=== PATIENT | female | born 1935 | race Caucasian/White ===

== ENCOUNTER 2020-01-16 14:05 | Inpatient (IN) ==
[2020-01-16] MEDS ORDERED: ASPIRIN CHEW 324 MG PO STA (15:23)
--- NOTE | 2020-01-16 15:40 | XRay Report ---
SINGLE VIEW CHEST CLINICAL HISTORY: Atypical chest pain. FINDINGS: An AP, portable, upright chest radiograph is compared to chest x-ray and chest CT dated 12/01. The examination is degraded by portable technique, apical lordotic positioning, and patient r otation. The heart is mildly enlarged noting atherosclerotic calcification of the thoracic aorta. The pulmonary vasculature is noncongested. Chronic interstitial thickening is similar to previous. Mild atelectasis is noted at the lung bases. No airspace consolidation or large pleural effusion is identi fied. No pneumothorax is seen. The skeletal structures are osteopenic. The bony thorax is grossly int act. Degenerative change is noted in the shoulders and thoracic spine. IMPRESSION: Mild cardiac enlargement with no acute cardiopulmonary abnormality. ACT 112: Negative or not required by law. Electronically signed by: Tony Ross M.D. 01/16/2020 3:39 PM
[2020-01-16 16:03] LABS: Basophils # (auto) 0.04 K/uL (0-0.2); Basophils % (auto) 0.5 %; Eosinophils # (auto) 0.12 K/uL (0-0.5); Eosinophils % (auto) 1.4 %; Hematocrit (blood only) 45.3 % (37-47); Hemoglobin 14.9 g/dL (12.0-16.0); Immature Granulocytes # (auto) 0.02 K/uL (0.00-0.02); Immature Granulocytes % (auto) 0.2 %; Lymphocytes # (auto) 1.18 K/uL (1.2-3.4); Lymphocytes % (auto) 13.7 %; Mean Corpuscular Hgb Conc 32.9 g/dL (32-36); Mean Corpuscular Volume 91.1 fL (80-100); Mean Platelet Volume 9.8 fL (7.4-10.4); Monocytes # (auto) 0.72 K/uL (0.11-0.59); Monocytes % (auto) 8.4 %; Neutrophils # (auto) 6.52 K/uL (1.4-6.5); Neutrophils % (auto) 75.8 %; Platelet Count 248 K/uL (130-400); RDW Coefficient of Variation 13.7 % (11.5-14.5); RDW Standard Deviation 45.7 fL (36.4-46.3); Red Blood Count 4.97 M/uL (4.2-5.4)
[2020-01-16 16:25] LABS: BUN Creatinine Ratio 15.3 (10-20); Blood Urea Nitrogen 19 mg/dl (7-18); Calcium 9.4 mg/dl (8.5-10.1); Carbon Dioxide 24 mmol/L (21-32); Chloride 108 mmol/L (98-107); Creatinine Clr Calc Pharmacy 37.1 ml/min; Est GFR (African American) 45.1; Est GFR (Non-African American) 38.9; Glucose 105 mg/dl (70-99); Lipase 165 U/L (73-393); Potassium 3.9 mmol/L (3.5-5.1); Sodium 140 mmol/L (136-145)
[2020-01-16 16:30] LABS: Troponin I < 0.015 ng/ml (0-0.045)
[2020-01-16 16:38] LABS: Partial Thromboplastin Ratio 0.9; Partial Thromboplastin Time 23.9 Seconds (21.0-31.0); Prothrombin Time 10.3 Seconds (9.0-12.0)
[2020-01-16 16:42] LABS: D Dimer 7720 ug/L FEU (0-500)
--- NOTE | 2020-01-16 16:59 | Ultrasound Report ---
US venous doppler LE RT CLINICAL HISTORY: 84 years-old Female presenting with right lower extremity pain and swelling. TECHNIQUE: Real-time grayscale and color and spectral Doppler ultrasound imaging of the veins of the right lower extremity was performed. Compression and augmentation were also utilized. COMPARISON: 09/17/2018. FINDINGS: RIGHT: Common femoral vein: Nonocclusive filling defect consistent with thrombus. Greater saphenous vein (superficial): Patent. Deep femoral vein: Patent. Femoral vein: Occlusive filling defect consistent with thrombus throughout the length of the superfic ial femoral vein. Popliteal vein: Nonocclusive thrombus. Calf veins: Occlusive thrombus. Other: None. IMPRESSION: Extensive occlusive deep venous thrombosis extending from the calf veins proximally to the femoral ve in with nonocclusive thrombus in the common femoral vein. This is presumably acute. The report will be called/faxed according to standard departmental protocol for a critical finding. ACT 112: Negative or not required by law. Electronically signed by: Tanmay Dunham M.D. 01/16/2020 4:58 PM
[2020-01-16] MEDS ORDERED: OPTIRAY 320 125ml IV PRN (17:27)
--- NOTE | 2020-01-16 17:43 | CT Scan Report ---
CT angio chest PE protocol CLINICAL HISTORY: 84 years-old Female presenting with elevated d-dimer, atypical chest pain, history of recent pulmonary emboli, clinical concern for pulmonary embolus. TECHNIQUE: Multidetector CT angiography of the chest was performed after administration of intravenou s contrast. 3-D volumetric and/or maximum intensity projection (MIP) images were subsequently reconst ructed for review. IV contrast: 79 mL of Optiray 320. One or more dose lowering techniques were used consistent with the principles of ALARA (as low as reasonably achievable), including automatic exposu re control, mA or kV adjustment to individual patient size, and/or use of iterative reconstruction. COMPARISON: Chest x-ray from earlier today and CTA chest from 12/28/2018. CT DOSE (mGy.cm): The estimated cumulative dose is 358.23 mGy.cm. FINDINGS: Tube Room Cashier topogram: Unremarkable. Pulmonary vasculature: The study is adequate for assessment of the pulmonary vascular tree. Acute appearing bilateral pulmon tere emboli within the distal main pulmonary arteries and extensively lobar and segmental pulmonary ar teries most extensively effect in the lower lobes. There is more eccentric emboli in the distal right main pulmonary artery and right upper lobe. The prior saddle embolus has resolved. Overall, the embo haleigh burden is slightly decreased from prior. Main pulmonary artery enlarged measuring 3.4 cm in maxim al diameter. No flattening of the interventricular septum. No intracardiac filling defect. No reflux of contrast into the hepatic veins. Remaining chest: Soft tissues: Thyroid absent or atrophic. No axillary, supraclavicular, mediastinal, or hilar lymphad enopathy. Atherosclerosis of the aorta. Top normal heart size. Coronary artery calcification. No ting cardial or pleural effusion. Cholelithiasis. Small hiatal hernia. Lungs and airways: No pneumothorax. Central airways patent. Pulmonary arteries are not significantly enlarged relative to adjacent bronchi. No interlobular septal thickening. Minimal dependent changes l ikely atelectasis. Minimal peripheral consolidation noted in the lingula, new from prior. Notably, th is region does not appear to be severely affected by pulmonary emboli. Musculoskeletal: Degenerative changes of the spine. IMPRESSION: 1. Extensive bilateral largely acute appearing pulmonary emboli with a slightly decreased embolus bu rden in comparison to prior and notable resolution of prior saddle embolus. Given the short interval time course, these emboli may all be subacute. Eccentricity of the distal right main pulmonary artery suggests early evolution towards chronic thromboembolic changes. 2. Main pulmonary artery enlargement suggests pulmonary hypertension. 3. No convincing evidence of pulmonary infarct or right heart strain. The report will be called/faxed according to standard departmental protocol. ACT 112: Negative or not required by law. Electronically signed by: Tanmay Dunham M.D. 01/16/2020 5:42 PM
[2020-01-16] MEDS ORDERED: HEPARIN SOD (PORCINE) 1000 UNIT/ML 10 ML VIAL ONE (18:40)
[2020-01-16] MEDS: HEPARIN SODIUM/DEXTROSE 25,000 UNITS/500 ML BAG IV SCH (18:45)
[2020-01-16] MEDS ORDERED: ACETAMINOPHEN 325 MG TAB PO PRN (20:36)
[2020-01-16] MEDS ORDERED: PNEUMOCOCCAL POLYSACCHARIDES 25 MCG/0.5 ML VIAL/SYR IM ONE (20:41)
[2020-01-16] MEDS ORDERED: PNEUMOCOCCAL ADMINISTRATION CHARGE ONE (20:41)
[2020-01-16] MEDS ORDERED: INFLUENZA ADMINISTRATION CHARGE ONE (20:41)
[2020-01-16] MEDS ORDERED: INFLUENZA VACCINE HIGH DOSE 65+ 0.5 ML SYR IM ONE (20:41)
--- NOTE | 2020-01-16 20:53 | Emergency Department Note ---
Entered by Ángel Chicas acting as a scribe for Demetrio Darby History of Present Illness General Chief complaint: Leg Injury/Pain Stated complaint: swollen R FOOT ANKLE CALF KNEE RED PAINFUL Time Seen by Provider: 01/16/20 15:18 Source: patient and family (daughter) History of Present Illness Onset (ago): day(s) (yesterday) Location: lower extremity (right) Pain Consistency: + other (worsening ) Quality: + other (swelling) Associated symptoms: + other (Positive for SOB. Negative for dyspnea and CP.) The patient is an 84 year old female who presents to the emergency department with complaints of worsening right leg swelling beginning yesterday. The patient states that her right leg started swelling yesterday, but she notes that her right leg swelling has worsened today. Per daughter, the patient had an episode of SOB three days ago while she was walking around. The patient denies any dyspnea and CP. 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 History is limited due to patient's dementia. Home Medications Home Medications Medication Instructions Recorded Confirmed Type levothyroxine 88 mcg PO QAM 11/12/18 01/16/20 History multivitamin [Daily-Krystyna] 1 tab PO QAM #100 tab 11/15/18 01/16/20 Rx cholecalciferol (vitamin D3) 5,000 unit PO DAILY 12/28/18 01/16/20 History [Vitamin D3] cyanocobalamin (vitamin B-12) 1,000 mcg PO DAILY 12/28/18 01/16/20 History [Vitamin B-12] rivastigmine tartrate 1.5 mg PO DAILY 12/28/18 01/16/20 History memantine 5 mg PO DAILY 01/16/20 01/16/20 History sertraline 25 mg PO DAILY 01/16/20 01/16/20 History Allergies Allergy/AdvReac Type Severity Reaction Status Date / Time No Known Allergies Allergy Verified 01/16/20 18:06 Past Med/Surg History Social History Preferred Language: Yoruba Communication Ability: Effective Visual Impairment: Limited Hearing Ability: Normal Transmitter Operator Required: No Beliefs That Will Affect Care: None marital status: / Current Living Situation: Spouse Current Living Situation Comment: cara herrera Other Information That Helps Us Care for You: No Feels Safe at Home: Yes Safety Concerns: Feels Safe At This Time Smoking Status: Never smoker Do You Dip or Chew Tobacco: No ; Second Hand Ex posure: No ; Tobacco Cessation Education Requested by Patient: No Hx Alcohol Use: No Hx Substance Use: No Review of Systems Unobtainable due to cognitive status Physical Exam Vital Signs Vital Signs - 24 hr 01/16/20 14:13 01/16/20 15:44 01/16/20 15:53 Temperature 36.6 C Temperature Source Oral Pulse Rate 128 H 96 H 94 H Pulse Rate from SpO2 Sensor 94 H Pulse Rhythm Regular Respiratory Rate 20 20 17 Respiratory Effort / Characteristics Non-Labored Spontaneous Respiratory Depth Normal Respiratory Pattern Regular Blood Pressure 156/106 H 159/95 H Blood Pressure Mean 122 111 Blood Pressure Position Sitting Pulse Oximetry 96 96 97 Oxygen Delivery Method Room Air Room Air Room Air Sepsis Recent Fever Within 48 Hours No Sepsis New/Unexplained Change in Mental Status No Sepsis Action Taken by Nursing No Action Required 01/16/20 16:00 01/16/20 17:01 Temperature Temperature Source Pulse Rate 92 H 89 Pulse Rate from SpO2 Sensor 93 H 90 Pulse Rhythm Respiratory Rate 20 21 Respiratory Effort / Characteristics Respiratory Depth Respiratory Pattern Blood Pressure 140/101 H 140/101 H Blood Pressure Mean 107 111 Blood Pressure Position Pulse Oximetry 97 100 Oxygen Delivery Method Room Air Sepsis Recent Fever Within 48 Hours Sepsis New/Unexplained Change in Mental Status Sepsis Action Taken by Nursing HENT: Exam performed. Head: Normocephalic and atraumatic. Right Ear: External ear normal. No mastoid tenderness. Left Ear: External ear normal. No mastoid tenderness. Mouth/Throat: The oropharynx is clear and moist. No trismus in the jaw. No dental abscesses or uvula swelling. No oropharyngeal exudate or tonsillar abscesses. EYES: Conjunctivae and EOM are normal. Pupils are equal, round, and reactive to light. Right eye exhibits no discharge. Left eye exhibits no discharge. No scleral icterus. NECK: Normal range of motion. Neck supple. No JVD present. No spinous process te nderness present. No carotid bruit present. No rigidity. No tracheal deviation and normal range of motion present. No Brudzinski's sign and no Kernig's sign noted. CV: Tachycardic, regular rhythm, normal heart sounds and intact distal pulses. Palpable radial pulses bue. PULM/CHEST: Effort normal and breath sounds normal. No respiratory distress. No stridor. She has no wheezes. She has no rales. Chest Wall: She exhibits no tenderness. ABD: The abdomen is soft. Bowel sounds are normal. She has no distension. No mass is present. There is no tenderness. There is no rebound, no guarding, no Duran's sign and no tenderness at McBurney's point. Rovsig negative MUSC/SKEL: Normal range of motion. There is no tenderness or deformity. Swelling of the right lower extremity noted. LYMPH: No cervical adenopathy. NEURO: Motor and sensation grossly intact. SKIN: Skin is warm and dry. She is not diaphoretic. Course Course 1520: The patient was evaluated in room B7. A complete history and physical exam was performed. 1649: The patient has a D dimer of 7000. I ordered a CTA chest. 1849: Vital signs stable. CTA shows bilateral PEs and ultrasound shows DVT. Patient be started on heparin and admitted to hospital service given the recurrence of PEs and DVTs. Upon reevaluation, the patient is stable. I discus sed the findings and the treatment plan with the patient. She expresses agreement and understanding. I spoke with Aparna WALTON, [facility]. The patient will be evaluated for further management. Consultations Consultation #1: I reviewed the patient's case with Aparna WALTON, [facility]. She will evaluate the patient for further management. Time: 18:49 Administered Medications Heparin Sodium/Dextrose (Heparin Sodium/Dextrose) 25,000 units in 500 mls @ 26 mls/hr IV .[id number] [facility]; Protocol Stop: 02/15/20 18:14 Last Admin: 01/16/20 18:45 Dose: 1,300 units/hr, 26 mls/hr Documented by: [id number] Cosigned by: [id number] Discontinued Medications Aspirin (Aspirin) 324 mg PO NOW STA Stop: 01/16/20 15:24 Last Admin: 01/16/20 15:50 Dose: 324 mg Documented by: [id number] Heparin Sodium (Porcine) (Heparin Iv Bolus) Confirm Administered Dose 10,000 units .ROUTE .[facility] Stop: 01/16/20 18:41 Last Admin: 01/16/20 18:45 Dose: 6,000 units Documented by: [id number] Cosigned by: [id number] Heparin Sodium/Dextrose () 1 ea IV NOW STA; Protocol Stop: 01/16/20 18:02 Last Admin: 01/16/20 20:38 Dose: Not Given Documented by: [id number] Ioversol (Optiray 320 125ml) 79 ml IV ONCE PRN PRN Reason: Interaction Checking Stop: 01/20/20 17:26 Last Admin: 01/16/20 17:30 Dose: 79 ml Documented by: [id number] Critical Care Time Critical Care Time: Yes Total Critical Care Time: 86 I have personally spent 86 minutes of critical care time in the direct management of this patient. This includes bedside care, interpretation of d iagnostic studies, and testing, discussion with consultants, patient, and family members, and other required patient management activities. This 86 minutes is in excess of all separately billable procedures. Medical Decision Making Medical Records Attestation: I reviewed the patient's medical records. Home Medications Current Medication List: was personally reviewed by me Laboratory Data Attestation: I reviewed the patient's lab results. Result diagrams: 01/16/20 15:50 01/16/20 15:50 Lab Results 01/16/20 01/16/20 01/16/20 Range/Units 15:50 15:50 15:50 WBC 8.60 (4.8-10.8) K/uL RBC 4.97 (4.2-5.4) M/uL Hgb 14.9 (12.0-16.0) g/dL Hct 45.3 (37-47) % MCV 91.1 (80-100) fL MCH 30.0 (25-34) pg MCHC 32.9 (32-36) g/dL RDW Std Deviation 45.7 (36.4-46.3) fL RDW Coeff of Jennyfer 13.7 (11.5-14.5) % Plt Count 248 (130-400) K/uL MPV 9.8 (7.4-10.4) fL Immature Gran % (Auto) 0.2 % Neut % (Auto) 75.8 % Lymph % (Auto) 13.7 % [place] % (Auto) 8.4 % Eos % (Auto) 1.4 % Baso % (Auto) 0.5 % Immature Gran # (Auto) 0.02 (0.00-0.02) K/uL Neut # (Auto) 6.52 H (1.4-6.5) K/uL Lymph # (Auto) 1.18 L (1.2-3.4) K/uL [place] # (Auto) 0.72 H (0.11-0.59) K/uL Eos # (Auto) 0.12 (0-0.5) K/uL Baso # (Auto) 0.04 (0-0.2) K/uL PT 10.3 (9.0-12.0) Seconds INR 1.0 (0.9-1.1) APTT 23.9 (21.0-31.0) Seconds PTT Ratio 0.9 D-Dimer 7720 H* (0-500) ug/L FEU Sodium 140 (136-145) mmol/L Potassium 3.9 (3.5-5.1) mmol/L Chloride 108 H (98-107) mmol/L Carbon Dioxide 24 (21-32) mmol/L Anion Gap 8.0 (3-11) BUN 19 H (7-18) mg/dl Creatinine 1.25 H (0.6-1.2) mg/dl Est Cr Clr Drug Dosing 37.1 ml/min Est GFR ( Amer) 45.1 Est GFR (Non-Af Amer) 38.9 BUN/Creatinine Ratio 15.3 (10-20) Glucose 105 H (70-99) mg/dl Calcium 9.4 (8.5-10.1) mg/dl Troponin I < 0.015 (0-0.045) ng/ml Lipase 165 (73-393) U/L Imaging Data Radiologist's Impression: Radiology results as stated below per my review and the radiologist's interpretation: US venous doppler LE RT FINDINGS: RIGHT: Common femoral vein: Nonocclusive filling defect consistent with thrombus. Greater saphenous vein (superficial): Patent. Deep femoral vein: Patent. Femoral vein: Occlusive filling defect consistent with thrombus throughout the length of the superficial femoral vein. Popliteal vein: Nonocclusive thrombus. Calf veins: Occlusive thrombus. Other: None. IMPRESSION: Extensive occlusive deep venous thrombosis extending from the calf veins proximally to the femoral vein with nonocclusive thrombus in the common femoral vein. This is presumably acute. The report will be called/faxed according to standard departmental protocol for a critical finding. ACT 112: Negative or not required by law. Electronically signed by: Tanmay Dunham M.D. 01/16/2020 4:58 PM SINGLE VIEW CHEST FINDINGS: An AP, portable, upright chest radiograph is compared to chest x-ray and chest CT dated 12/28/2018. The examination is degraded by portable technique, apical lordotic positioning, and patient rotation. The heart is mildly enlarged noting atherosclerotic calcification of the thoracic aorta. The pulmonary vasculature is noncongested. Chronic interstitial thickening is similar to previous. Mild atelectasis is noted at the lung bases. No airspace consolidation or large pleural effusion is identified. No pneumothorax is seen. The skeletal structures are osteopenic. The bony thorax is grossly intact. Degenerative change is noted in the shoulders and thoracic spine. IMPRESSION: Mild cardiac enlargement with no acute cardiopulmonary abnormality. ACT 112: Negative or not required by law. Electronically signed by: Tony Ross M.D. 01/16/2020 3:[address] angio chest PE protocol FINDINGS: Recycling Worker topogram: Unremarkable. Pulmonary vasculature: The study is adequate for assessment of the pulmonary vascular tree. Acute appearing bilateral pulmonary emboli within the distal main pulmonary arteries and extensively lobar and segmental pulmonary arteries most extensively effect in the lower lobes. There is more eccentric emboli in the distal right main pulmonary artery and right upper lobe. The prior saddle embolus has resolved. Overall, the embolus burden is slightly decreased from prior. Main pulmonary artery enlarged measuring 3.4 cm in maximal diameter. No flattening of the in terventricular septum. No intracardiac filling defect. No reflux of contrast into the hepatic veins. Remaining chest: Soft tissues: Thyroid absent or atrophic. No axillary, supraclavicular, mediasti nal, or hilar lymphadenopathy. Atherosclerosis of the aorta. Top normal heart size. Coronary artery calcification. No pericardial or pleural effusion. Cholelithiasis. Small hiatal hernia. Lungs and airways: No pneumothorax. Central airways patent. Pulmonary arteries are not significantly enlarged relative to adjacent bronchi. No interlobular septal thickening. Minimal dependent changes likely atelectasis. Minimal peripheral consolidation noted in the lingula, new from prior. Notably, this region does not appear to be severely affected by pulmonary emboli. Musculoskeletal: Degenerative changes of the spine. IMPRESSION: 1. Extensive bilateral largely acute appearing pulmonary emboli with a slightly decreased embolus burden in comparison to prior and notable resolution of prior saddle embolus. Given the short interval time course, these emboli may all be subacute. Eccentricity of the distal right main pulmonary artery suggests early evolution towards chronic thromboembolic changes. 2. Main pulmonary artery enlargement suggests pulmonary hypertension. 3. No convincing evidence of pulmonary infarct or right heart strain. The report will be called/faxed according to standard departmental protocol. ACT 112: Negative or not required by law. Electronically signed by: Tanmay Dunham M.D. 01/16/2020 5:42 PM ECG Data Attestation: I personally reviewed and interpreted this ECG as follows: Indication: + SOB/dyspnea Rate (beats per minute): 96 Rhythm: + sinus rhythm ECG ST segments: no ST depression and no ST elevation Additional Comments: SD/QRS/QTC within normal limits, left ventricular hypertrophy noted. Blood Pressure Blood Pressure Findings: Elevated blood pressure Blood Pressure Disposition: further management by hospitalist [facility] Narrative 1520: The patient was evaluated in room B7. A complete history and physical exam was performed. 1649: The patient has a D dimer of 7000. I ordered a CTA chest. 1849: Vital signs stable. CTA shows bilateral PEs and ultrasound shows DVT. Patient be started on heparin and admitted to hospital service given the recurrence of PEs and DVTs. Upon reevaluation, the patient is stable. I discussed the findings and the treatment plan with the patient. She expresses agreement and understanding. [facility] The patient will be evaluated for further management. Impression & Plan Bilateral pulmonary embolism, DVT (deep venous thrombosis) Discharge Plan Visit Data *Final* Discharge Date/Time: 01/16/20 19:35 Chief Complaint: Leg Injury/Pain Stated Complaint: swollen R FOOT ANKLE CALF KNEE RED PAINFUL ED Provider: Demetrio Darby Discharge Problem: Bilateral pulmonary embolism, DVT (deep venous thrombosis) Patient Disposition: Admitted As Inpatient Discharge Instructions Interventions: ED Discharge Assessment Last Done: 01/16/20 19:35 Discharge Problem: DVT (deep venous thrombosis) Qualifiers: DVT location: lower extremity Affected thrombotic vein of extremity: unspecified vein of extremity Chronicity: acute Laterality: right Qualified Code(s): I82.401 - Acute embolism and thrombosis of unspecified deep veins of right lower extremity The scribe's documentation has been prepared under my direction and personally reviewed by me in its entirety. I confirm that the note above accurately ref lects all work, treatment, procedures, and medical decision making performed by me.
--- NOTE | 2020-01-16 21:37 | History & Physical Report ---
Date of Service January 16, 2020 Assessment & Plan (1) Bilateral pulmonary embolism: (2) DVT (deep venous thrombosis): -Admit to telemetry -Patient presenting from home for evaluation of right lower extremity edema; 11/2018, had L LE DVT and saddle pulmonary embolism, treated at [facility] with IV heparin and transition to Eliquis. Thromboembolism was felt to be provoked secondary to recent hip surgery. Patient's PCP discontinued Eliquis about 2 months ago due to completion of therapy. Patient tolerated Eliquis well per her daughter. -In the ED, found to have extensive occlusive deep venous thrombosis extending from the calf veins proximally to the femoral vein with nonocclusive thrombus in the common femoral vein; CTA chest showing extensive bilateral largely acute appearing pulmonary emboli without signs of saddle embolus -Troponin negative, hemodynamically stable, saturating well on room air -Started on IV heparin in the ED, will continue with; likely transition to Eliquis -Possibly provoked thromboembolism as patient is rather sedentary; Ensure routine cancer screenings are up-to-date (3) Hypothyroid: -Continue levothyroxine (4) Dementia: -Continue Namenda and Exelon (5) DVT prophylaxis: -On IV heparin as above History of Present Illness Chief Complaint: Right leg swelling Primary Care Provider: Nav Camilo 84-year-old female who presents the ED for evaluation of right leg swelling. Patient with history of left lower extremity DVT and saddle pulmonary embolism 11/2018. Patient treated at [facility] with IV heparin and transition to Eliquis. Was felt to be provoked DVT at that time due to recent hip surgery. Per patient's daughter who is the bedside, patient's PCP discontinued her Eliquis about 2 months ago. Patient has underlying dementia therefore history is limited from her. Daughter reports that the right leg swelling was first noted yesterday. Today patient's home health nurse came to evaluate her and saw the significance of the swelling and patient was then referred to the ED for further evaluation. At the time my exam, patient offers no complaints. She denies chest pain shortness of breath. No lightheadedness, dizziness, diaphoresis, syncopal events. No other recent illnesses, fevers, chills. Denies any urinary symptoms. In the ED, right lower extremity venous Doppler is positive for DVT and CTA chest is showing largely acute bilateral pulmonary embolism. Patient is hemodynamically stable and saturating well on room air. She was started on a heparin drip. Allergies Allergy/AdvReac Type Severity Reaction Status Date / Time No Known Allergies Allergy Verified 01/16/20 18:06 Home Medications Home Medications Medication Instructions Recorded Confirmed Type levothyroxine 88 mcg PO QAM 11/12/18 01/16/20 History multivitamin [Daily-Krystyna] 1 tab PO QAM #100 tab 11/15/18 01/16/20 Rx cholecalciferol (vitamin D3) 5,000 unit PO DAILY 12/28/18 01/16/20 History [Vitamin D3] cyanocobalamin (vitamin B-12) 1,000 mcg PO DAILY 12/28/18 01/16/20 History [Vitamin B-12] rivastigmine tartrate 1.5 mg PO DAILY 12/28/18 01/16/20 History memantine 5 mg PO DAILY 01/16/20 01/16/20 History sertraline 25 mg PO DAILY 01/16/20 01/16/20 History Past Med/Surg History Medical History Dementia Hip fracture, right (Acute) S/p repair History of DVT (deep vein thrombosis) History of pulmonary embolism HTN (hypertension) (Chronic) Hyperlipidemia (Chronic) Hypothyroid Surgical History Hx of cataract surgery Hx of tonsillectomy Family History (Updated 01/16/20 @ 21:34 by ANTON Kendall) Sister Breast cancer Social History Preferred Language: Emir[place] Communication Ability: Effective Visual Impairment: Limited Hearing Ability: Normal Housing Management Officer Required: No Beliefs That Will Affect Care: None marital status: / Current Living Situation: Spouse Current Living Situation Comment: [facility] Other Information That Helps Us Care for You: No Feels Safe at Home: Yes Safety Concerns: Feels Safe At This Time Smoking Status: Never smoker Do You Dip or Chew Tobacco: No ; Second Hand Exposure: No ; Tobacco Cessation Education Requested by Patient: No Hx Alcohol Use: No Hx Substance Use: No Review of Systems Review of Systems: Reviewed with patient however felt to be unreliable due to underlying dementia. Physical Exam Constitutional: WD/WN, vitals as above Eyes: PERRL, conjunctivae normal, anicteric sclerae ENMT: external ear and nose normal, oropharynx normal Respiratory: normal respiratory effort, lungs clear to auscultation Cardiovascular: Rate/Rhythm: regular rate and regular rhythm Vessels: normal peripheral pulses Extremities: + edema (+3 edema RLE) Gastrointestinal (Abdomen): normal bowel sounds, soft, nontender, no hepatosplenomegaly Musculoskeletal: no cyanosis or clubbing, extremities motor strength 5/5 Skin: no rashes, warm and dry Neurologic: PERRL, EOMI, accommodation nl, no face palsy, no dysarthria Psychiatric: Orientation: alert, oriented to person and oriented to place (Aware that she is in the hospital however unsure of which one); + not oriented to time Insight: + limited insight Results & Data Vital Signs (Past 12 Hours) Vital Signs Temp Pulse Pulse Resp BP BP Pulse Ox 01/16/20 20:25 36.5 C 77 18 144/86 H 01/16/20 19:35 77 15 144/96 H 97 01/16/20 19:00 80 15 144/96 H 96 01/16/20 17:01 89 21 140/101 H 100 01/16/20 16:00 92 H 20 140/101 H 97 01/16/20 15:53 94 H 17 159/95 H 97 01/16/20 15:44 96 H 20 96 01/16/20 14:13 36.6 C 128 H 20 156/106 H 96 Laboratory Results Short CBC 01/16/20 Range/Units 15:50 WBC 8.60 (4.8-10.8) K/uL Hgb 14.9 (12.0-16.0) g/dL Hct 45.3 (37-47) % Plt Count 248 (130-400) K/uL BMP 01/16/20 15:50 Sodium 140 Potassium 3.9 Chloride 108 H Carbon Dioxide 24 BUN 19 H Creatinine 1.25 H Glucose 105 H Calcium 9.4 Cardiac Enzymes 01/16/20 Range/Units 15:50 Troponin I < 0.015 (0-0.045) ng/ml Diagnostic Findings RLE VENOUS DOPPLER IMPRESSION: Extensive occlusive deep venous thrombosis extending from the calf veins proximally to the femoral vein with nonocclusive thrombus in the common femoral vein. This is presumably acute. CXR IMPRESSION: Mild cardiac enlargement with no acute cardiopulmonary abnormality. CTA CHEST IMPRESSION: 1. Extensive bilateral largely acute appearing pulmonary emboli with a slightly decreased embolus burden in comparison to prior and notable resolution of prior saddle embolus. Given the short interval time course, these emboli may all be subacute. Eccentricity of the distal right main pulmonary artery suggests early evolution towards chronic thromboembolic changes. 2. Main pulmonary artery enlargement suggests pulmonary hypertension. 3. No convincing evidence of pulmonary infarct or right heart strain. Code Status & VTE Plan Code Status Patient is a full code as per my discussion with her and her daughter who is the bedside. VTE Prophylaxis Plan VTE Prophylaxis will be ordered: No Supervising Physician Co-Signing Physician Notes Attending Addendum The patient was seen and examined in Telemetry unit Prior history of saddle pulmonary emboli following hip surgery and treated with Eliquis for long-term Presented to ER for evaluation of right lower extremity swelling without any significant other symptoms Noted to have DVT with bilateral pulmonary embolism Denies any symptoms during examination On examination Lying in bed comfortably Hemodynamically stable Chest-clear to auscultate bilaterally Heart-S1-S2, regular Abdomen-soft, benign, nontender Extremities 1-2+ edema bilaterally right more than the left 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 Alert and awake without any focal neuro deficit Admission labs and imaging studies reviewed Has right leg DVT with bilateral pulmonary emboli Hemodynamically stable Agree with assessment and plan as outlined above by Aparna Kline (1) DVT (deep venous thrombosis) Affected thrombotic vein of extremity: unspecified vein of extremity Chronicity: acute DVT location: lower extremity Laterality: right Qualified Code(s): I82.401 - Acute embolism and thrombosis of unspecified deep veins of right lower extremity
[2020-01-17 01:12] LABS: Partial Thromboplastin Ratio 4.1
[2020-01-17] MEDS: LEVOTHYROXINE SODIUM 88 MCG TABLET PO SCH (05:15)
[2020-01-17 06:24] LABS: Hematocrit (blood only) 42.1 % (37-47); Hemoglobin 14.4 g/dL (12.0-16.0); Mean Corpuscular Hemoglobin 30.8 pg (25-34); Mean Corpuscular Hgb Conc 34.2 g/dL (32-36); Mean Platelet Volume 9.8 fL (7.4-10.4); Platelet Count 262 K/uL (130-400); RDW Coefficient of Variation 13.6 % (11.5-14.5); RDW Standard Deviation 44.5 fL (36.4-46.3); Red Blood Count 4.68 M/uL (4.2-5.4); White Blood Count 8.19 K/uL (4.8-10.8)
--- NOTE | 2020-01-17 06:24 | Electrocardiogram Report ---
Test Reason : Blood Pressure : / mmHG Vent. Rate : 096 BPM Atrial Rate : 096 BPM P-R Int : 194 ms QRS Dur : 086 ms QT Int : 372 ms P-R-T Axes : 007 -43 -09 degrees QTc Int : 469 ms Normal sinus rhythm Left axis deviation Nonspecific T wave abnormality Abnormal ECG When compared with ECG of 28-DEC-2018 12:53, Right bundle branch block is no longer Present Confirmed by Kan Montano ([id number]) on 01/17/2020 6:24:23 AM Referred By: REFERRED SELF Confirmed By:Kan Montano
[2020-01-17 06:53] LABS: BUN Creatinine Ratio 13.9 (10-20); Calcium 9.7 mg/dl (8.5-10.1); Creatinine Clr Calc Pharmacy 40.1 ml/min; Est GFR (African American) 50.4; Est GFR (Non-African American) 43.5; Potassium 3.7 mmol/L (3.5-5.1)
[2020-01-17] MEDS: RIVASTIGMINE TARTRATE 1.5 MG CAP PO SCH (08:00)
[2020-01-17] MEDS: CHOLECALCIFEROL 1,000 UNITS 25 MCG TAB PO SCH (08:00)
[2020-01-17] MEDS: SERTRALINE HCL 50 MG TABLET PO SCH (08:00)
[2020-01-17] MEDS: MEMANTINE HCL 5 MG TAB PO SCH (08:01)
[2020-01-17] MEDS: CYANOCOBALAMIN 500 MCG TABLET (VITAMIN B-12) PO SCH (08:01)
[2020-01-17] MEDS: MULTIVITAMIN TAB PO SCH (08:01)
[2020-01-17 10:40] LABS: Partial Thromboplastin Ratio 2.2
[2020-01-17 10:56] LABS: Partial Thromboplastin Time 60.1 Seconds (21.0-31.0)
[2020-01-17] MEDS: HEPARIN SODIUM/DEXTROSE 25,000 UNITS/500 ML BAG IV SCH (15:14)
--- NOTE | 2020-01-17 17:30 | Hospitalist Progress Note ---
Date of Service January 17, 2020 Assessment & Plan (1) Bilateral pulmonary embolism: (2) DVT (deep venous thrombosis): Bilateral pulmonary emboli due to right lower extremity DVT Present to the ER with with RLE edema Had a L LE DVT and saddle pulmonary embolism, treated at [facility] on 11/2018 that felt to be provoked secondary to recent hip surgery. Eliquis discontinued about 2 months ago due to completion of therapy. Doppler of RLE found to have extensive occlusive deep venous thrombosis extending from the calf veins proximally to the femoral vein with nonocclusive thrombus in the common femoral vein CTA chest showing extensive bilateral largely acute appearing pulmonary emboli without signs of saddle embolus Was starting on heparin IV subq Since pt tolerated Eliquis well in the past, will transition to Eliquis in am Echo pending Pt saturated well on RA Will need outpatient workup to r/o for malignancy (3) Hypothyroid: Continue levothyroxine (4) Dementia: Continue Namenda and Exelon (5) DVT prophylaxis: On IV heparin as above Admission and Anticipated Discharge Date Admission Date: January 16, 2020 Subjective Pt was seen and examined. Lying in bed with no distress. Pt said that she feels fine She said that her only complaint was her right leg that was swelling, but denies any pain She said that she does not have any symptoms such as chest pain, palpitation, dizziness and SOB Physical Exam Physical Exam: General- No acute distress Head- atraumatic Eyes- PERRL, EOMI, ENT- oropharynx clear Neck- supple, no JVD Lungs- clear to auscultation Heart- regular rhythm; no murmur Abdomen- normal bowel sounds, soft, nontender Extremities- no calf tenderness, +RLE swelling Neuro- alert, oriented x 3; PERRL, EOMI; no facial palsy; no dysarthria Skin- warm & dry Results & Data ([facility]) Vital Signs (Past 12 Hours) Vital Signs Temp Pulse Pulse Pulse Resp BP Pulse Ox 01/17/20 16:26 37.2 C 78 19 129/71 93 01/17/20 11:12 36.6 C 66 18 120/71 94 01/17/20 08:47 58 L 01/17/20 07:32 36.6 C 57 L 18 107/66 93 (1) DVT (deep venous thrombosis) Affected thrombotic vein of extremity: unspecified vein of extremity Chronicity: acute DVT location: lower extremity Laterality: right Qualified Code(s): I82.401 - Acute embolism and thrombosis of unspecified deep veins of right lower extremity
[2020-01-18] MEDS: LEVOTHYROXINE SODIUM 88 MCG TABLET PO SCH (05:45)
[2020-01-18 06:22] LABS: Partial Thromboplastin Ratio 1.8
[2020-01-18 06:28] LABS: Partial Thromboplastin Time 47.6 Seconds (21.0-31.0)
[2020-01-18] MEDS: CHOLECALCIFEROL 1,000 UNITS 25 MCG TAB PO SCH (08:20)
[2020-01-18] MEDS: RIVASTIGMINE TARTRATE 1.5 MG CAP PO SCH (08:20)
[2020-01-18] MEDS: SERTRALINE HCL 50 MG TABLET PO SCH (08:20)
[2020-01-18] MEDS: MULTIVITAMIN TAB PO SCH (08:20)
[2020-01-18] MEDS: MEMANTINE HCL 5 MG TAB PO SCH (08:20)
[2020-01-18] MEDS: CYANOCOBALAMIN 500 MCG TABLET (VITAMIN B-12) PO SCH (08:20)
[2020-01-18] MEDS ORDERED: APIXABAN 5 MG TABLET PO ONE (11:45)
--- NOTE | 2020-01-18 12:02 | Hospitalist Progress Note ---
Date of Service January 18, 2020 Assessment & Plan (1) Bilateral pulmonary embolism: (2) DVT (deep venous thrombosis): Bilateral pulmonary emboli due to right lower extremity DVT Present to the ER with with RLE edema Had a L LE DVT and saddle pulmonary embolism, treated at [facility] on 11/2018 that felt to be provoked secondary to recent hip surgery. Eliquis discontinued about 2 months ago due to completion of therapy. Doppler of RLE found to have extensive occlusive deep venous thrombosis extending from the calf veins proximally to the femoral vein with nonocclusive thrombus in the common femoral vein CTA chest showing extensive bilateral largely acute appearing pulmonary emboli without signs of saddle embolus Currently on heparin IV subq Since pt tolerated Eliquis well in the past, will transition to Eliquis in am Echo showed Echo showed focal thickening of the basal septal with no evidence of left ventricle outflow obstruction left ventricular is normal in size. Left ventricular wall motion is normal with ejection fraction 55 to 60% No evidence of RV strain on echo Pt saturated well on RA Will need outpatient workup for hypercoagulopathy and for malignancy if she did not have any Fall precaution while on Eliquis (3) Hypothyroid: Continue levothyroxine (4) Dementia: Continue Namenda and Exelon (5) DVT prophylaxis: Transition from IV heparin to Eliquis CODE STATUS FULL CODE Disposition Discharge home today with services Admission and Anticipated Discharge Date Admission Date: January 16, 2020 Subjective Pt was seen and examined Sitting in chair with no distress Pt said that she slept well last night She said that she feels good Update provided to her daughter César today over the phone Denies any chest pain, palpitation, dizziness and SOB Physical Exam Physical Exam: General- No acute distress Head- atraumatic Eyes- PERRL, EOMI, ENT- oropharynx clear Neck- supple, no JVD Lungs- clear to auscultation Heart- regular rhythm; no murmur Abdomen- normal bowel sounds, soft, nontender Extremities- no calf tenderness, +RLE swelling Neuro- alert, oriented x 3; PERRL, EOMI; no facial palsy; no dysarthria Skin- warm & dry Results & Data ([facility]) Vital Signs (Past 12 Hours) Vital Signs Temp Pulse Pulse Resp BP Pulse Ox 01/18/20 08:00 83 01/18/20 04:29 36.4 C L 77 17 129/71 97 (1) DVT (deep venous thrombosis) Affected thrombotic vein of extremity: unspecified vein of extremity Chronicity: acute DVT location: lower extremity Laterality: right Qualified Code(s): I82.401 - Acute embolism and thrombosis of unspecified deep veins of right lower extremity
--- NOTE | 2020-01-18 14:07 | Discharge Summary ---
Date of Service January 18, 2020 Admission HPI Per Admitting Provider 84-year-old female who presents the ED for evaluation of right leg swelling. Patient with history of left lower extremity DVT and saddle pulmonary embolism 11/2018. Patient treated at [facility] with IV heparin and transition to Eliquis. Was felt to be provoked DVT at that time due to recent hip surgery. Per patient's daughter who is the bedside, patient's PCP discontinued her Eliquis about 2 months ago. Patient has underlying dementia therefore history is limited from her. Daughter reports that the right leg swelling was first noted yesterday. Today patient's home health nurse came to evaluate her and saw the significance of the swelling and patient was then referred to the ED for further evaluation. At the time my exam, patient offers no complaints. She denies chest pain shortness of breath. No lightheadedness, dizziness, diaphoresis, syncopal events. No other recent illnesses, fevers, chills. Denies any urinary symptoms. In the ED, right lower extremity venous Doppler is positive for DVT and CTA chest is showing largely acute bilateral pulmonary embolism. Patient is hemodynamically stable and saturating well on room air. She was started on a heparin drip. Admission Exam Per Admitting Provider Constitutional: WD/WN, vitals as above Eyes: PERRL, conjunctivae normal, anicteric sclerae ENMT: external ear and nose normal, oropharynx normal Respiratory: normal respiratory effort, lungs clear to auscultation Cardiovascular: regular rate and regular rhythm Vessels: normal peripheral pu lses Extremities: + edema (+3 edema RLE) Gastrointestinal: normal bowel sounds, soft, nontender, no hepatosplenomegaly Musculoskeletal: no cyanosis or clubbing, extremities motor strength 5/5 Skin: no rashes, warm and dry Neurologic: PERRL, EOMI, accommodation nl, no face palsy, no dysarthria Psychiatric: Orientation: alert, oriented to person and oriented to place (Aware that she is in the hospital however unsure of which one); + not oriented to time Insight: + limited insight Principal Diagnosis Bilateral pulmonary embolism: DVT (deep venous thrombosis): Hypothyroid: Dementia: Discharge Exam General- No acute distress Head- atraumatic Eyes- PERRL, EOMI, ENT- oropharynx clear Neck- supple, no JVD Lungs- clear to auscultation Heart- regular rhythm; no murmur Abdomen- normal bowel sounds, soft, nontender Extremities- no calf tenderness, +RLE swelling Neuro- alert, oriented x 3; PERRL, EOMI; no facial palsy; no dysarthria Skin- warm & dry Discharge Data Allergies Allergy/AdvReac Type Severity Reaction Status Date / Time No Known Allergies Allergy Verified 01/16/20 18:06 Consultations 01/16/20 18:02 ED Decision to Admit Stat 01/16/20 20:36 Consult Case Management - Discharge Planning Routine Ordered Studies 01/16/20 15:23 US venous doppler LE RT Stat 01/16/20 16:49 CT angio chest PE protocol Stat US venous doppler LE RT CLINICAL HISTORY: 84 years-old Female presenting with right lower extremity pain and swelling. TECHNIQUE: Real-time grayscale and color and spectral Doppler ultrasound imaging of the veins of the right lower extremity was performed. Compression and augmentation were also utilized. COMPARISON: 09/17/2018. FINDINGS: RIGHT: Common femoral vein: Nonocclusive filling defect consistent with thrombus. Greater saphenous vein (superficial): Patent. Deep femoral vein: Patent. Femoral vein: Occlusive filling defect consistent with thrombus throughout the length of the superficial femoral vein. Popliteal vein: Nonocclusive thrombus. Calf veins: Occlusive thrombus. Other: None. IMPRESSION: Extensive occlusive deep venous thrombosis extending from the calf veins proximally to the femoral vein with nonocclusive thrombus in the common femoral vein. This is presumably acute. The report will be called/faxed according to standard departmental protocol for a critical finding. ACT 112: Negative or not required by law. Electronically signed by: Tanmay Dunham M.D. 01/16/2020 4:58 PM SINGLE VIEW CHEST CLINICAL HISTORY: Atypical chest pain. FINDINGS: An AP, portable, upright chest radiograph is compared to chest x-ray and chest CT dated 12/28/2018. The examination is degraded by portable technique, apical lordotic positioning, and patient rotation. The heart is mildly enlarged noting atherosclerotic calcification of the thoracic aorta. The pulmonary vasculature is noncongested. Chronic interstitial thickening is similar to previous. Mild atelectasis is noted at the lung bases. No airspace consolidation or large pleural effusion is identified. No pneumothorax is seen. The skeletal structures are osteopenic. The bony thorax is grossly intact. Degenerative change is noted in the shoulders and thoracic spine. IMPRESSION: Mild cardiac enlargement with no acute cardiopulmonary abnormality. ACT 112: Negative or not required by law. Electronically signed by: Tony Ross M.D. 01/16/2020 3:39 PM Dictated: 01/16/201537 Transcribed: 01/16/201537 CT angio chest PE protocol CLINICAL HISTORY: 84 years-old Female presenting with elevated d-dimer, atypical chest pain, history of recent pulmonary emboli, clinical concern for pulmonary embolus. TECHNIQUE: Multidetector CT angiography of the chest was performed after administration of intravenous contrast. 3-D volumetric and/or maximum intensity projection (MIP) images were subsequently reconstructed for review. IV contrast: 79 mL of Optiray 320. One or more dose lowering techniques were used consistent with the principles of ALARA (as low as reasonably achievable), including automatic exposure control, mA or kV adjustment to individual patient size, and/or use of iterative reconstruction. COMPARISON: Chest x-ray from earlier today and CTA chest from 12/28/2018. CT DOSE (mGy.cm): The estimated cumulative dose is 358.23 mGy.cm. FINDINGS: Supervisor Sample Preparation topogram: Unremarkable. Pulmonary vasculature: The study is adequate for assessment of the pulmonary vascular tree. Acute appearing bilateral pulmonary emboli within the distal main pulmonary arteries and extensively lobar and segmental pulmonary arteries most extensively effect in the lower lobes. There is more eccentric emboli in the distal right main pulmonary artery and right upper lobe. The prior saddle embolus has resolved. Overall, the embolus burden is slightly decreased from prior. Main pulmonary artery enlarged measuring 3.4 cm in maximal diameter. No flattening of the interventricular septum. No intracardiac filling defect. No reflux of contrast into the hepatic veins. Remaining chest: Soft tissues: Thyroid absent or atrophic. No axillary, supraclavicular, mediastinal, or hilar lymphadenopathy. Atherosclerosis of the aorta. Top normal heart size. Coronary artery calcification. No pericardial or pleural effusion. Cholelithiasis. Small hiatal hernia. Lungs and airways: No pneumothorax. Central airways patent. Pulmonary arteries are not significantly enlarged relative to adjacent bronchi. No interlobular septal thickening. Minimal dependent changes likely atelectasis. Minimal peripheral consolidation noted in the lingula, new from prior. Notably, this region does not appear to be severely affected by pulmonary emboli. Musculoskeletal: Degenerative changes of the spine. IMPRESSION: 1. Extensive bilateral largely acute appearing pulmonary emboli with a slightly decreased embolus burden in comparison to prior and notable resolution of prior saddle embolus. Given the short interval time course, these emboli may all be subacute. Eccentricity of the distal right main pulmonary artery suggests early evolution towards chronic thromboembolic changes. 2. Main pulmonary artery enlargement suggests pulmonary hypertension. 3. No convincing evidence of pulmonary infarct or right heart strain. The report will be called/faxed according to standard departmental protocol. ACT 112: Negative or not required by law. Electronically signed by: Tanmay Dunham M.D. 01/16/2020 5:42 PM Dictated: 01/16/201733 Transcribed: 01/16/201733 Hospital Course (1) Bilateral pulmonary embolism: (2) DVT (deep venous thrombosis): Bilateral pulmonary emboli due to right lower extremity DVT Present to the ER with with RLE edema Had a L LE DVT and saddle pulmonary embolism, treated at [facility] on 11/2018 that felt to be provoked secondary to recent hip surgery. Eliquis discontinued about 2 months ago due to completion of therapy. Doppler of RLE found to have extensive occlusive deep venous thrombosis extending from the calf veins proximally to the femoral vein with nonocclusive t hrombus in the common femoral vein CTA chest showing extensive bilateral largely acute appearing pulmonary emboli without signs of saddle embolus Currently on heparin IV subq Since pt tolerated Eliquis well in the past, will transition to Eliquis in am Echo showed Echo showed focal thickening of the basal septal with no evidence of left ventricle outflow obstruction left ventricular is normal in size. Left ventricular wall motion is normal with ejection fraction 55 to 60% No evidence of RV strain on echo Pt saturated well on RA Will need outpatient workup for hypercoagulopathy and for malignancy if she did not have any Fall precaution while on Eliquis (3) Hypothyroid: Continue levothyroxine (4) Dementia: Continue Namenda and Exelon (5) DVT prophylaxis: Transition from IV heparin to Eliquis CODE STATUS FULL CODE Disposition Discharge home today with services Total Time Total Time Spent Total Time Spent (In Minutes): 35 minutes Total Time Includes: Examination of the Patient, Discharge Planning, Medication Reconciliation, Communication With Other Providers and Other Discharge Plan Discharge Items Patient Disposition: Home - Home Health Services Reason For Visit: DVT/PE Discharge Diagnosis: Bilateral pulmonary embolism: DVT (deep venous thrombosis): Hypothyroid: Dementia: Activity: Resume your previous activity Non-emergency contact: Primary Care Provider Call non-emergency contact if: you have any medication questions Follow-up/Referrals: Nav Camilo [Primary Care Provider] - 01/21/20 11:00 am Diet: Regular Addtl Attending Provider Instructions: Follow up with your primary care provider dr. Camilo in 1 week You will need outpatient workup for hypercoagulopathy and for malignancy if she did not have any (your physician can arrange for that) Avoid any high level activity Fall precaution due to risk of bleeding Seek medical attention if you develop any abnormal bleeding (such as blood in your stool and your urine) Medication Instructions: Eliquis Your condition is typically treated with an anticoagulant. Anticoagulants will thin your blood to help prevent new clots. You should take her medication exactly as directed. Never skip a dose. Never take a double dose. If you miss a dose, take it as soon as you remember. Avoid NSAIDs (Motrin, Aleve, Naproxen, Ibuprofen, Advil, Meloxicam,..) due to risks of bleeding Call your Primary Care doctor if you experience any of the following: Swelling or Pain in your leg Sudden, continuous pain deep in a muscle Pain that worsens when you are active or when you stand still for a long time Chest Pain Sudden Shortness of Breath Rapid or pounding heart beat Fainting Dizziness Cough with blood or bloody sputum Sweating more than normal Bruises Heavy or uncontrolled bleeding Blood in your urine, stool or vomit Black or tarry stools Caring for Your Self at Home: Avoid sitting, standing or lying down for long periods without moving your legs and feet When traveling by car, stop to get out and move around at least once every 3 hours On long airplane, train or bus rides, get up and move around when possible If you can't get up, wiggle your toes and tighten your calves to keep your blood moving Follow Up: It is important for you to keep your follow up appointments with your medical provider. Pending Studies at Discharge: No Stand-Alone Forms: My [employer], Smoking Cessation Medications and DC Order Prescriptions: New Eliquis 5 mg Tablet 5 mg PO BID Qty: 74 RF: 0 Continued rivastigmine tartrate 1.5 mg Capsule 1.5 mg PO DAILY RF: 0 cyanocobalamin (vitamin B-12) [Vitamin B-12] 1,000 mcg Tablet 1,000 mcg PO DAILY RF: 0 cholecalciferol (vitamin D3) [Vitamin D3] 5,000 unit Tablet 5,000 unit PO DAILY RF: 0 sertraline 25 mg tablet 25 mg PO DAILY RF: 0 memantine 5 mg tablet 5 mg PO DAILY RF: 0 levothyroxine 88 mcg Tablet 88 mcg PO QAM RF: 0 multivitamin [Daily-Krystyna] Tablet 1 tab PO QAM Qty: 100 RF: 0 Discharge Orders: Discharge Order (Routine); Ordered 01/18/20 Ordered By: Gil Gomez Admission Data Admit Date/Time: 01/16/20 18:50 Attending Provider: Madelyn Walsh I. Admit Provider: Rama Kline Primary Care Provider: Nav Camilo Other Providers: Rama Kline ; Gil Gomez Other Interventions: Discharge Summary Assessment (RN) Last Done: 01/18/20 12:52
[2020-01-18] MEDS ORDERED: APIXABAN 5 MG TABLET PO SCH (23:00)
== END 2020-01-18 14:12 | disposition home health service (06) | DRG 299 ==
LOC: ED 14:05 → 2E 18:50 → SUATTDRO 18:50 → 2E 19:35